=== PATIENT | female | born 1940 | race Two or more races ===

== ENCOUNTER 2017-05-11 19:10 | Emergency (ER) | payer MEDICARE, MEDICAID ==
[~2017-05-11] VITALS: Ht 162.6 cm; Wt 72.6 kg
--- NOTE | 2017-05-11 19:05 | Emergency Room Report ---
History of Present Illness General Source: Medical Record, EMS Present Illness HPI [id number] BIBEMS for "missed dialysis." Due to "communication error." Is on MWF schedule. SNF states patient will be unable to go to HD until Wed unless she gets it from [facility] today. No complaints from patient. VSS at SNF Allergies: Coded Allergies: No Known Allergies (Unverified , 05/11/17) Patient History Past Medical History: renal disease Past Surgical History: other - Trach Review of Systems All Other Systems: limited - unable to obtain, trach/vent Medical Decision Making Medicare Attestation I Georgia Foote MD hereby attest that the medical record entry for date of service, 10/13/16 accurately reflects signatures/notations that I made in my capacity as MD when I treated/diagnosed the above listed Medicare beneficiary. I attest that this information is true, accurate and complete to the best of my knowledge. I understand that any falsification, omission, or concealment of material fact may subject me to administrative, civil, or criminal liability. This patient warrants hospital admission for extreme of age and has a condition that cannot be treated as outpatient. Diagnostic Impression: Primary Impression: Abnormal laboratory test Additional Impression: Renal failure Qualified Codes: N18.6 - End stage renal disease; Z99.2 - Dependence on renal dialysis ER Course - VSS. Afebrile. - On trach mask - Labs: K normal. SerumCr ~5. Bicarb normal. Mild Leuks 11k - Despite mild leuks, no PNA, patient ?anuric. Abd soft, NT/ND. Low suspicion for sepsis - CXR: no PNA. Dw Dr Escoto, PMD - wants patient DC back to SNF Contrary to what SNF RN said, patient CAN get HD tomorrow. EKG Diagnostic Results Rate: normal Rhythm: NSR ST Segments: no acute changes ASA given to the pt in ED: No Rhythm Strip Diag. Results EP Interpretation: yes Rate: 96 Rhythm: NSR, no PVC's, no ectopy Chest X-Ray Diagnostic Results Chest X-Ray Diagnostic Results : Chest X-Ray Ordered: Yes # of Views/Limited/Complete: 1 View Indication: Other - Missed dialysis EP Interpretation: Yes Interpretation: no consolidation, no effusion, no pneumothorax, no acute cardiopulmonary disease Impression: No acute disease Interpreting ER Provider: Electronically signed by Dr Foote Status: improved Disposition: XFER SNF Condition: Improved GE[place] FOOTE M.D. May 11, 2017 19:05
[2017-05-11 19:18] VITALS: BP 151/58
[2017-05-11 19:45] LABS: BASOPHILS % (AUTO) 0.8 % (0.0-2.0); EOSINOPHILS % (AUTO) 5.9 % (0.0-3.0); LYMPHOCYTES % (AUTO) 22.4 % (20.0-45.0); MEAN CORPUSCULAR HEMOGLOBIN 30.9 PG (27.0-31.0); MEAN CORPUSCULAR HGB CONC 35.6 G/DL (32.0-36.0); MEAN CORPUSCULAR VOLUME 87 FL (80-99); MONOCYTES % (AUTO) 3.9 % (1.0-10.0); NEUTROPHILS % (AUTO) 67.1 % (45.0-75.0); PLATELET COUNT 153 K/UL (150-450); RED BLOOD COUNT 3.53 M/UL (4.20-5.40); RED CELL DISTRIBUTION WIDTH 13.6 % (11.6-14.8); WHITE BLOOD COUNT 11.7 K/UL (4.8-10.8)
[2017-05-11] MEDS ORDERED: ACETAMINOPHEN325 M1 ORAL (19:47)
[2017-05-11] MEDS ORDERED: VITAMIN D1000 UNI1 GT (19:56)
[2017-05-11] MEDS ORDERED: MINOXIDIL2.5 MG GT (19:56)
[2017-05-11] MEDS ORDERED: PANTOPRAZOLE SO40 MG GT (19:56)
[2017-05-11] MEDS ORDERED: IPRATROPIU0.2 MG/1 M HHN ×2 (19:56→20:24)
[2017-05-11] MEDS ORDERED: LORAZEPAM0.5 MG GT (19:56)
[2017-05-11] MEDS ORDERED: METOLAZONE10 MG GT (19:56)
[2017-05-11] MEDS ORDERED: MILK OF MA2400 MG/10 GT (19:56)
[2017-05-11] MEDS ORDERED: NITRO-BID1 GM TOPIC (19:56)
[2017-05-11] MEDS ORDERED: ALBUTEROL2.5 MG/3 M INH (19:56)
[2017-05-11] MEDS ORDERED: LEVETIRACE100 MG/1 M GT (19:56)
[2017-05-11] MEDS ORDERED: ATORVASTATIN CA40 MG (20:24)
[2017-05-11] MEDS ORDERED: AMLODIPINE BESY10 MG GT (20:24)
[2017-05-11] MEDS ORDERED: HEPARIN SO5000 UNIT2 SUBQ (20:24)
[2017-05-11] MEDS ORDERED: HUMALOG100 UNIT/1 SUBQ (20:24)
[2017-05-11] MEDS ORDERED: HYDRALAZINE HCL50 MG GT (20:24)
[2017-05-11] MEDS ORDERED: FERROUS SU220 MG/53 GT (20:24)
[2017-05-11] MEDS ORDERED: INSULIN CHARG5 UNITS SUBQ (20:24)
[2017-05-11] MEDS ORDERED: FUROSEMIDE40 MG GT (20:24)
[2017-05-11] MEDS ORDERED: FLORASTOR250 MG GT (20:24)
[2017-05-11 20:32] LABS: ALANINE AMINOTRANSFERASE 9 U/L (3-33); ALBUMIN/GLOBULIN RATIO 0.8 (1.0-2.7); ANION GAP 16 (5-15); ASPARTATE AMINO TRANSFERASE 20 U/L (5-40); CALCIUM 9.7 mg/dL (8.6-10.2); CARBON DIOXIDE 27 mEQ/L (20-30); CHLORIDE 89 mEQ/L (98-107); CREATININE 5.1 mg/dL (0.5-0.9); HEMOLYSIS 31; SODIUM 132 mEQ/L (135-145); TOTAL PROTEIN 8.1 g/dL (6.6-8.7)
[2017-05-11 20:37] VITALS: BP 139/49
[2017-05-11 20:43] LABS: CKMB 1.6 ng/mL (< 3.8)
[2017-05-11 22:20] VITALS: BP 143/52
== END 2017-05-11 22:22 ==
LOC: EDBD 19:10 → EMR 19:44 → CANBEDREQ 20:38 → EMR 22:22
DX: N18.6 End stage renal disease (principal); Z99.2 Dependence on renal dialysis; R79.89 Other specified abnormal findings of blood chemistry; Z93.0 Tracheostomy status
CPT/HCPCS: 36415; 71010; 80053; 82550; 82553; 83880; 85025; 93005; 99283